=== PATIENT | female | born 1935 | race Caucasian/White ===

== ENCOUNTER 2022-04-22 09:57 | Inpatient (IN) ==
[2022-04-22 10:22] LABS: ABS Basophils 0.1 10^3/ul (0-0.2); ABS Eosinophils 0.2 10^3/ul (0-0.6); ABS Lymphocytes 1.2 10^3/ul (1.0-4.8); ABS Monocytes 0.3 10^3/ul (0-0.8); ABS Neutrophils 3.3 10^3/ul (1.5-7.7); Eosinophil % 4.3 %; Hematocrit 42 % (35-47); Lymphocyte % 23.5 %; Mean Corpuscular HGB Conc 33 g/dL (31-36); Mean Corpuscular Hemoglobin 29 pg (27-31); Mean Corpuscular Volume 88 fL (80-97); Mean Platelet Volume 8.8 fL (7.4-10.4); Platelet Count 163 10^3/uL (150-450); Red Blood Count 4.75 10^6 /uL (3.70-4.87); Red Cell Distribution Width 15 % (10-15); White Blood Count 5.1 10^3/uL (3.5-10.8)
[2022-04-22 10:27] LABS: INR 1.14 (0.88-1.18)
[2022-04-22 11:02] LABS: Albumin 3.7 g/dL (3.2-5.2); Albumin/Globulin Ratio 1.3 (1-3); Globulin 2.8 g/dL (2-4); Potassium 4.5 mmol/L (3.5-5.0); Total Bilirubin 0.6 mg/dL (0.2-1.0); Total Protein 6.5 g/dL (6.4-8.9); eGFR CKD-EPI 85.5 (>60)
[2022-04-22 11:52] LABS: High Sensitivity Troponin 1 Hr 3 pg/mL (<15)
[2022-04-22 18:42] LABS: HDL Cholesterol 55.9 mg/dL
[2022-04-22] MEDS ORDERED: Influenza vaccine *QUAD* *2022-23* 0.5 ML SYRINGE IM ONE (19:00)
[2022-04-23] MEDS ORDERED: Heparin 5000 UNITS/ML 1 mL VIAL IV PRN (09:43)
[2022-04-23] MEDS ORDERED: Heparin DRIP 25,000 UNITS BAG 25,000 UNITS/500 ML BAG IV SCH (09:45)
[2022-04-23] MEDS ORDERED: Furosemide 20 mg/2 ml IV VIAL IV ONE (15:04)
[2022-04-23] MEDS: NF: Exemestane 25 mg TAB (NF) PO SCH (16:29)
[2022-04-23] MEDS: Nitroglycerin 0.2 mg/hr PATCH (5 mg) TRANSDERM SCH (16:39)
[2022-04-24 06:50] LABS: Calcium 8.5 mg/dL (8.6-10.3); Magnesium 1.9 mg/dL (1.9-2.7); eGFR CKD-EPI 87.4 (>60)
[2022-04-24] MEDS ORDERED: NS 0.9% 1000 ml BAG 1,000 ML IV SCH ×2 (07:00→12:15)
[2022-04-24] MEDS: NF: Exemestane 25 mg TAB (NF) PO SCH (09:12)
[2022-04-24] MEDS ORDERED: VERAPAMIL 2.5 MG/ML 2 ML VIAL ** 5 mg/2 ml ONE (09:43)
[2022-04-24] MEDS ORDERED: fentaNYL 100 mcg/2 ml 50 MCG/ML VIAL ONE (09:43)
[2022-04-24] MEDS ORDERED: Heparin 2 UNITS/ML 1000 mls 2,000 ML IV ONE (09:43)
[2022-04-24] MEDS ORDERED: Midazolam 5 mg/5 ml VIAL 1 mg/ml 5 ml VIAL (5 mg) ONE (09:43)
[2022-04-24] MEDS ORDERED: Heparin 1,000 UNIT/ML 10 ml (10,000 UNITS) CATHLAB/DIALYSIS ONE (09:43)
[2022-04-24] MEDS ORDERED: Lidocaine 1% MPF 5 ML VIAL ONE (09:44)
[2022-04-24] MEDS ORDERED: Iohexol 350 (CONTRAST) 100 ML PAK IV ONE (09:44)
[2022-04-24] MEDS ORDERED: nitroGLYCERIN DRIP 25,000 MCG/250 ML BTL ONE (09:44)
[2022-04-24] MEDS ORDERED: Heparin 2 UNITS/ML 1000 mls 1,000 ML IV ONE (09:48)
[2022-04-24 11:50] LABS: POC SO2 96 %
[2022-04-24 11:50] LABS: POC SO2 64 %
[2022-04-24] MEDS: Nitroglycerin 0.6 mg/hr PATCH (15 mg) TRANSDERM SCH (20:24)
[2022-04-25] MEDS: Nitroglycerin 0.2 mg/hr PATCH (5 mg) TRANSDERM SCH (08:31)
[2022-04-25] MEDS ORDERED: Isosorbide Mononit ER 30mg TAB PO SCH (09:00)
[2022-04-25] MEDS: NF: Exemestane 25 mg TAB (NF) PO SCH (10:48)
[2022-04-25] MEDS: Nitroglycerin 0.6 mg/hr PATCH (15 mg) TRANSDERM SCH (20:11)
[2022-04-26] MEDS: NF: Exemestane 25 mg TAB (NF) PO SCH (07:00)
[2022-04-26 07:11] LABS: Calcium 8.3 mg/dL (8.6-10.3); Potassium 4.2 mmol/L (3.5-5.0)
[2022-04-26] MEDS ORDERED: NS 0.9% 1000 ml BAG 1,000 ML IV SCH ×2 (10:45→14:30)
[2022-04-26] MEDS ORDERED: fentaNYL 100 mcg/2 ml 50 MCG/ML VIAL ONE (12:19)
[2022-04-26] MEDS ORDERED: Heparin 1,000 UNIT/ML 10 ml (10,000 UNITS) CATHLAB/DIALYSIS ONE (12:19)
[2022-04-26] MEDS ORDERED: Midazolam 5 mg/5 ml VIAL 1 mg/ml 5 ml VIAL (5 mg) ONE (12:19)
[2022-04-26] MEDS ORDERED: VERAPAMIL 2.5 MG/ML 2 ML VIAL ** 5 mg/2 ml ONE (12:19)
[2022-04-26] MEDS ORDERED: Heparin 2 UNITS/ML 1000 mls 2,000 ML IV ONE (12:20)
[2022-04-26] MEDS ORDERED: nitroGLYCERIN DRIP 25,000 MCG/250 ML BTL ONE (12:20)
[2022-04-26] MEDS ORDERED: Iohexol 350 (CONTRAST) 100 ML PAK IV ONE (12:20)
[2022-04-26] MEDS ORDERED: Lidocaine 1% MPF 5 ML VIAL ONE (12:20)
[2022-04-26] MEDS ORDERED: Bivalirudin 250 MG VIAL ONE (13:05)
[2022-04-26] MEDS: Nitroglycerin 0.6 mg/hr PATCH (15 mg) TRANSDERM SCH (20:22)
[2022-04-27 05:31] LABS: ABS Basophils 0.1 10^3/ul (0-0.2); ABS Eosinophils 0.2 10^3/ul (0-0.6); ABS Lymphocytes 1.5 10^3/ul (1.0-4.8); ABS Monocytes 0.5 10^3/ul (0-0.8); ABS Neutrophils 3.4 10^3/ul (1.5-7.7); Hematocrit 41 % (35-47); Hemoglobin 13.4 g/dL (12.0-16.0); Lymphocyte % 26.6 %; Mean Corpuscular HGB Conc 33 g/dL (31-36); Mean Corpuscular Hemoglobin 29 pg (27-31); Mean Corpuscular Volume 90 fL (80-97); Mean Platelet Volume 9.3 fL (7.4-10.4); Nucleated Red Blood Cells % 0.1; Platelet Count 157 10^3/uL (150-450); Red Cell Distribution Width 15 % (10-15); White Blood Count 5.7 10^3/uL (3.5-10.8)
[2022-04-27 06:12] LABS: Calcium 8.3 mg/dL (8.6-10.3); Phosphorus 3.6 mg/dL (2.5-5.0); Potassium 4.3 mmol/L (3.5-5.0); eGFR CKD-EPI 85.2 (>60)
[2022-04-27] MEDS ORDERED: Albuterol HFA INHALER 8 gm MDI INH PRN (09:41)
[2022-04-27] MEDS: NF: Exemestane 25 mg TAB (NF) PO SCH (09:42)
[2022-04-27 12:00] VITALS: BP 117/86
== END 2022-04-27 12:05 | disposition home or self-care (01) | DRG 247 ==
LOC: ED 09:57 → EDHOLD 09:57 → SUATTDRO 17:41 → EDHOLD 04-23 10:12 → MEDTELE 04-23 10:36 → ICU 04-26 14:19
PROVIDERS: ADMIT Internal Medicine; ATTEND Internal Medicine